=== PATIENT | female | born 2000 | race Caucasian/White ===

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

== ENCOUNTER 2022-07-13 07:15 | Emergency (ER) | payer BC, SELFPAY ==
[2022-07-13] VITALS (8 sets, daily range): BP systolic 109–174; BP diastolic 72–107; PULSE 76–115; RESP 16–18; TEMP 36.6–37.3; O2SAT 96–100; BMI 48.6
--- NOTE | 2022-07-13 07:31 | EKG12_ITS ---
Test Reason : CLERENCE Blood Pressure : / mmHG Vent. Rate : 109 BPM Atrial Rate : 109 BPM P-R Int : 190 ms QRS Dur : 080 ms QT Int : 326 ms P-R-T Axes : 045 038 011 degrees QTc Int : 439 ms Sinus tachycardia Otherwise normal ECG Confirmed by ALMA DELIA PATEL ([id number]), greeting card editor KRISH JOLLY ([id number]) on 07/16/2022 7:27:45 AM Referred By: Confirmed By:ALMA DELIA PATEL
[2022-07-13 08:06] LABS: Absolute Lymphocyte Count 2.43 X10^3/uL (0.83-4.51); Absolute Neutrophil Count 11.1 X10^3/uL (2.0-7.7); Basophil# 0.05 X10^3/uL; Basophil% 0.3 % (0-1); Eosinophil# 0.22 X10^3/uL; Eosinophils% 1.5 % (0-5); Hematocrit 44.4 % (37-47); Hemoglobin 14.2 g/dL (12.0-15.0); Lymphocyte # 2.43 X10^3/ul (0.83-4.51); Lymphocyte % 16.6 % (19-41); Mean Corpuscular Hgb 28.5 pg (27.0-32.0); Mean Corpuscular Volume 89.2 fL (81-99); Mean Platelet Vol. 9.3 fl (6.2-12.0); Monocyte% 5.5 % (0-10); NRBC Flagged by Analyzer 0 % (0-5); Neutrophil # 11.09 X10^3/uL (2.7-7.7); Neutrophil % 75.6 % (47-70); Platelet Count 364 K/mm3 (150-450); RBC Distribution Width CV 13.3 % (11.6-14.6); RBC Distribution Width SD 43.4 fl (35.1-43.9); Red Blood Count 4.98 M/mm3 (4.2-5.4); White Blood Count 14.7 K/mm3 (4.4-11.0)
--- NOTE | 2022-07-13 08:10 | EDS_ITS ---
HPI History of Present Illness Chief Complaint: Overdose Informant: patient Onset/Context/Timing Onset: Yesterday Context: Sudden Onset Timing: Continuous Quality: Depressed Location: Generalized Worsened by: Nothing Relieved by: Nothing Associated Symptoms Associated Symptoms: Positive for palpatations and suicidal ideation; Negative for vomiting*, diarrhea*, fever*, rash*, seizure, tremor, change in mental status or homicidal ideation Narrative Narrative: Patient presents with overdose of gabapentin and Lexapro that occurred this morning. Patient states that she started feeling depressed last night. Patient states it got worse today. Patient states she took 90 gabapentin tablets of 100 mg each and 6 of her Lexapro tablets that are 40 mg each. Patient took these approximately 1-1/2 hours prior to arrival. Patient states this was a suicide attempt. Patient feels like she has some palpitations and heart racing. Patient denies any nausea or vomiting. Patient denies any fevers or chills. Patient denies any seizures. [facility] Medical History Anxiety Home Medications Amphetam/Dextroamp 12/29/18 [History Last Taken Unknown] citalopram 40 mg tablet 30 mg PO DAILY 12/29/18 [History Last Taken Unknown] gabapentin 100 mg capsule 100 mg PO DAILY PRN Anxiety 12/29/18 [History Last Taken Unknown] Allergy/AdvReac Type Severity Reaction Status Date / Time No Known Allergies Allergy Verified 12/29/18 17:28 Surgical History no surgical history no surgical history Social History (Updated 07/13/22 @ 08:[address] Jamison Tineo DO) Smoking Status: Current every day smoker tobacco type: e-cigarettes alcohol intake: current substance use type: marijuana ROS ROS ED Constitutional Constitutional ED: Denies chills or fever(s) Eyes Eyes: Denies blurry vision or change in vision ENT ENT ED: Denies rhinorrhea or sore throat Cardiovascular Cardiovascular: Reports palpitations and racing heartbeat; Denies chest pain Respiratory/Chest Respiratory/Chest: Denies cough or dyspnea Gastrointestinal Gastrointestinal: Denies nausea or vomiting Genitourinary Genitourinary ED: Denies dysuria or hematuria Musculoskeletal Musculoskeletal: Denies back pain or neck pain Integumentary Denies abscess or rash Neurologic Neurologic: Reports headache(s); Denies weakness Psychiatric Psychiatric: Reports depression and suicidal thoughts Allergic/Immunologic Allergic/Immunologic ED: Denies mouth swelling or urticaria EXAM Physical Exam Const Vital Signs: 07/13/22 07:16 07/13/22 08:17 07/13/22 09:37 Temperature 97.8 F Temperature Source Temporal Pulse Rate 115 H 94 88 Respiratory Rate 18 16 16 Blood Pressure 174/94 H 164/107 H 109/81 H Blood Pressure Mean 120 126 90 Pulse Ox 97 98 97 Oxygen Delivery Method Room Air Room Air Room Air 07/13/22 11:17 07/13/22 13:08 07/13/22 16:00 Temperature Temperature Source Pulse Rate 89 88 90 Respiratory Rate 18 18 16 Blood Pressure 152/91 H 158/91 H 142/88 H Blood Pressure Mean 111 113 106 Pulse Ox 97 97 99 Oxygen Delivery Method Room Air Room Air Room Air Positive well nourished, well developed and obese General Appearance ED: well developed and NAD Nutritional Appearance: obese HEENT normocephalic and atraumatic Neck supple and no JVD Resp normal respiratory effort and clear to auscultation bilaterally Cardio Rate: tachycardic Rhythm: regular rhythm GI non-tender and non-distended Auscultation: normoactive bowel sounds Palpation: soft Extremity normal to inspection General Extremety ED: Negative for edema or tenderness General Extremity: Negative for edema Neuro oriented x3, CN's II-XII intact bilaterally and no sensory deficits noted Sensorium / Orientation: alert Motor Exam: strength 5/5 throughout Psych mental status grossly normal Activity / Motor Behavior: avoids eye contact Speech: minimal and soft Mood & Affect: depressed and flat affect Thought Content: suicidality Skin Rashes: no rashes MDM MDM MDM Narrative Medical decision making narrative: Differential diagnosis includes suicide attempt, overdose on gabapentin, ov erdose on Lexapro, coingestion, alcohol intoxication, and major depression. Basic medical screening labs will be obtained. CBC will be obtained to assess for anemia and leukocytosis. Comprehensive metabolic profile will be obtained to assess for electrolyte abnormality, renal function, and hepatic function. Serum hCG will be obtained to assess for status. Serum alcohol level will be obtained to assess for alcohol intoxication. Acetaminophen level and salicylate levels will be obtained to assess for coingestions. Urine tox screen will be obtained to assess for substance abuse. COVID-19 rapid antigen will be obtained to assess for COVID-19 infection. EKG will be obtained to assess for cardiac dysrhythmia and QT prolongation. Lab Data Attestation: I reviewed the patient's lab results. Lab results narrative: CBC was reviewed. There is a mild leukocytosis of 14.7. Comprehensive metabolic profile was reviewed. Potassium was slightly low at 3.3. Urine tox screen was reviewed and was positive for cannabinoids. Acetaminophen level was reviewed and was less than 2. Salicylate level was reviewed and was less than 1.7. Serum hCG was reviewed and was negative. Serum alcohol level was reviewed and was normal at 5. COVID-19 rapid antigen was reviewed and was negative. Labs: Laboratory Results - last 24 hr 07/13/22 07/13/22 07/13/22 07:35 07:50 07:50 WBC 14.7 H RBC 4.98 Hgb 14.2 Hct 44.4 MCV 89.2 MCH 28.5 MCHC 32.0 RDW Std Deviation 43.4 RDW Coeff of Fabiola 13.3 Plt Count 364 MPV 9.3 Immature Gran % (Auto) 0.500 Neut % (Auto) 75.6 H Lymph % (Auto) 16.6 L [place] % (Auto) 5.5 Eos % (Auto) 1.5 Baso % (Auto) 0.3 Absolute Neuts (auto) 11.1 H Absolute Lymphs (auto) 2.43 Nucleated RBC % 0 Sodium 137 Potassium 3.3 L Chloride 110 H Carbon Dioxide 20.0 L Anion Gap 7 BUN 9 Creatinine 1.14 H Estim Creat Clear Calc 73.08 Est GFR (MDRD) Af Amer 77 Est GFR (MDRD) Non-Af 64 BUN/Creatinine Ratio 7.9 L Glucose 114 H Calcium 9.1 Total Bilirubin 0.20 AST 13 L ALT 24 Alkaline Phosphatase 81 Total Protein 7.7 Albumin 3.5 Globulin 4.2 Albumin/Globulin Ratio 0.8 L Serum , Qual Salicylates Urine Opiates Screen NEGATIVE Urine Methadone Screen NEGATIVE Acetaminophen Ur Barbiturates Screen NEGATIVE Ur Phencyclidine Scrn NEGATIVE Ur Amphetamines Screen NEGATIVE MDMA (Ecstasy) Screen NEGATIVE U Benzodiazepines Scrn NEGATIVE Urine Cocaine Screen NEGATIVE U Cannabinoids Screen POSITIVE H Ur Drug Screen Comment Ethyl Alcohol 07/13/22 07/13/22 07:50 07:50 WBC RBC Hgb Hct MCV MCH MCHC RDW Std Deviation RDW Coeff of Fabiola Plt Count MPV Immature Gran % (Auto) Neut % (Auto) Lymph % (Auto) [place] % (Auto) Eos % (Auto) Baso % (Auto) Absolute Neuts (auto) Absolute Lymphs (auto) Nucleated RBC % Sodium Potassium Chloride Carbon Dioxide Anion Gap BUN Creatinine Estim Creat Clear Calc Est GFR (MDRD) Af Amer Est GFR (MDRD) Non-Af BUN/Creatinine Ratio Glucose Calcium Total Bilirubin AST ALT Alkaline Phosphatase Total Protein Albumin Globulin Albumin/Globulin Ratio Serum , Qual NEGATIVE Salicylates < 1.7 L Urine Opiates Screen Urine Methadone Screen Acetaminophen < 2.0 L Ur Barbiturates Screen Ur Phencyclidine Scrn Ur Amphetamines Screen MDMA (Ecstasy) Screen U Benzodiazepines Scrn Urine Cocaine Screen U Cannabinoids Screen Ur Drug Screen Comment Ethyl Alcohol 5.0 EKG Initial EKG: Attestation: I personally reviewed and interpreted this EKG as follows: Interpretation: No Acute Injury Pattern and Sinus Tachycardia (109) Comments: EKG was obtained. On my independent interpretation, it showed a sinus tachycardia with a rate of 109. NH interval, QRS interval, and QTc intervals were all normal. [place] was normal. There are no acute ST or T wave changes. Prior EKG tracings: available for review Prior: Unchanged (12/29/2018) Treatment and Re-Evaluation Narrative: Patient has no signs of hypersomnolence at this time. Case was discussed with poison control. They recommended observing the patient for 6 hours. Patient has been observed here in the emergency department for over 6 hours. Patient has had no further signs of respiratory depression or hypersomnolence. Patient is medically cleared for psychiatric placement. Case was discussed with crisis counselor. They will attempt to place the patient in a psychiatric facility. [place] slip will be filled out and placed on the chart. Patient understands and is agreeable with the plan. All questions were answered. Patient was accepted to [facility]. Patient will be transferred there. Patient is agreeable with the plan. All questions were answered. Discharge Plan Triage Chief Complaint: Overdose ED Provider: Jamison Tineo Dx/Rx/DC Orders Clinical Impression: Suicide attempt, Depression, Borderline personality disorder Prescriptions: No Action Amphetam/Dextroamp citalopram 40 MG tablet 30 mg PO DAILY gabapentin 100 capsule 100 mg PO DAILY PRN (Reason: Anxiety) Primary Care Provider: Jose Membreno Referrals: Jose Membreno DO [Primary Care Provider] - Disposition Disposition: Psychiatric Hospital or Unit Discharge Location: [facility]
[2022-07-13 08:27] LABS: Internal QC Validated? YES +Cl - CLEAR BKGD; Pregnancy, Serum, hCG Quali. NEGATIVE Negative
[2022-07-13 08:29] LABS: Amphetamine Urine VISTA NEGATIVE (<1000 ng/mL); Barbiturate Urine VISTA NEGATIVE (< 200 ng/mL); Benzodiazepine Urine VISTA NEGATIVE (< 200 ng/mL); Cocaine Urine VISTA NEGATIVE (< 300 ng/mL); Ecstacy Urine VISTA NEGATIVE (< 500 ng/mL); Methadone Urine VISTA NEGATIVE (< 300 ng/mL); PCP Urine VISTA NEGATIVE (< 25 ng/mL); THC Urine VISTA POSITIVE (< 50 ng/mL); Vista UDS pH Range 7
[2022-07-13 08:33] LABS: Acetaminophen (Tylenol) Level < 2.0 ug/mL (10.0-30.0); Salicylate < 1.7 mg/dL (2.8-20.0)
[2022-07-13 08:35] LABS: ALB/GLOB Ratio 0.8 RATIO (0.9-2.4); AST(SGOT) 13 U/L (15-37); Alanine Aminotransfer ALT/SGPT 24 U/L (13-56); Albumin, Serum 3.5 g/dL (3.2-5.0); Alkaline Phosphatase 81 U/L (45-117); Anion Gap 7 (5-15); BUN 9 mg/dL (7-18); BUN/Creat Ratio 7.9 RATIO (10-20); Calcium,Total 9.1 mg/dL (8.5-10.1); Chloride 110 mmol/L (98-107); Creatinine, Serum 1.14 mg/dL (0.55-1.02); EST Glomerular Filtration Rate 64 mL/min (>60); Est Glom Filt Rate - Afr Amer 77 mL/min (>60); Estimated Creatinine Clearance 73.08 ml/min; Globulin 4.2 g/dL (2.2-4.2); Glucose 114 mg/dL (74-106); Potassium 3.3 mmol/L (3.5-5.1); Protein, Total 7.7 g/dL (6.4-8.2); Sodium Level 137 mmol/L (136-145)
[2022-07-13] MEDS: 0.9% Normal Saline 1,000 ML 1000 ML IV (09:32)
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
--- NOTE | 2022-07-13 21:07 | ED.RN ---
KIP ETA PUSHED UNTIL 0/230
[2022-07-13] MEDS: Ibuprofen 600 MG Tablet PO (23:35)
== END 2022-07-13 23:42 ==
PROVIDERS: Emergency Provider Emergency Medicine; PCP Pediatrics; Visit Provider Emergency Medicine
DX: T42.6X2A Poisoning by other antiepileptic and sedative-hypnotic drugs, intentional self-harm, initial encounter (principal); T43.222A Poisoning by selective serotonin reuptake inhibitors, intentional self-harm, initial encounter; F60.3 Borderline personality disorder; R00.0 Tachycardia, unspecified; R00.2 Palpitations; F32.A Depression, unspecified; F17.290 Nicotine dependence, other tobacco product, uncomplicated; Z79.899 Other long term (current) drug therapy
CPT/HCPCS: 80053; 80307; 80329; 82077; 84703; 85025; 87426; 93005; 96360; 96361; 99285; J7030; G0480

== ENCOUNTER 2022-09-12 23:26 | Emergency (ER) | payer BC, SELFPAY ==
--- NOTE | 2022-09-12 00:08 | RAD_ITS ---
INDICATION: pain EXAMINATION/TECHNIQUE: X-RAY - RIGHT XR Ankle Min 3 Views COMPARISON: None. FINDINGS: SOFT TISSUES: Soft tissue swelling lateral ankle. No radiopaque foreign body detected. BONES/JOINTS: No acute fracture or subluxation. Normal alignment. Preservation of the joint space(s). Small plantar calcaneal enthesophyte. RAD/Ankle min 3 Views IMPRESSION: Right ankle soft tissue swelling with no acute osseous injury. Electronically Signed: Damien King MD at 0:41 EDT ,
[2022-09-12 23:27] VITALS: BP 134/67; PULSE 83; RESP 18; TEMP 36.9; O2SAT 100; BMI 44.9
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
[2022-09-12] MEDS: Morphine 4 MG/ML Syringe IV (23:45)
[2022-09-12] MEDS: Ondansetron 4 MG/2 ML Vial IV (23:46)
[2022-09-12 23:53] LABS: Absolute Lymphocyte Count 2.45 X10^3/uL (0.83-4.51); Absolute Neutrophil Count 13.2 X10^3/uL (2.0-7.7); Basophil# 0.05 X10^3/uL; Basophil% 0.3 % (0-1); Eosinophil# 0.08 X10^3/uL; Eosinophils% 0.5 % (0-5); Hematocrit 40.3 % (37-47); Lymphocyte # 2.45 X10^3/ul (0.83-4.51); Lymphocyte % 14.7 % (19-41); Mean Corp Hgb Conc 32.3 g/dL (32-36); Mean Corpuscular Hgb 28.9 pg (27.0-32.0); Mean Corpuscular Volume 89.6 fL (81-99); Mean Platelet Vol. 9.4 fl (6.2-12.0); Monocyte# 0.72 X10^3/uL; Monocyte% 4.3 % (0-10); NRBC Flagged by Analyzer 0 % (0-5); Neutrophil # 13.21 X10^3/uL (2.7-7.7); Neutrophil % 79.1 % (47-70); Platelet Count 315 K/mm3 (150-450); RBC Distribution Width CV 13.1 % (11.6-14.6); RBC Distribution Width SD 42.7 fl (35.1-43.9); White Blood Count 16.7 K/mm3 (4.4-11.0)
[2022-09-13 00:06] LABS: Anion Gap 5 (5-15); BUN 6 mg/dL (7-18); BUN/Creat Ratio 6.1 RATIO (10-20); Calcium,Total 8.7 mg/dL (8.5-10.1); Chloride 111 mmol/L (98-107); Creatinine, Serum 0.98 mg/dL (0.55-1.02); EST Glomerular Filtration Rate 76 mL/min (>60); Est Glom Filt Rate - Afr Amer 92 mL/min (>60); Glucose 102 mg/dL (74-106); Potassium 3.7 mmol/L (3.5-5.1); Sodium Level 140 mmol/L (136-145)
[2022-09-13 00:20] LABS: International Normalized Ratio 1.2; Prothrombin Time (Protime)PT. 14.7 SECONDS (11.7-14.9)
[2022-09-13] MEDS: Lidocaine 1% /Epi 1:100 (20ml) 20 ML Vial INFILT (00:25)
[2022-09-13] MEDS: Diphth,Pertuss(Acell),Tet Vac 0.5 ML Vial IM (02:06)
[2022-09-13] MEDS: Morphine 4 MG/ML Syringe IV (02:16)
[2022-09-13 02:29] VITALS: BP 158/72; PULSE 75; RESP 16; TEMP 36.7; O2SAT 100
[2022-09-13 02:58] VITALS: RESP 18
[2022-09-13 04:46] VITALS: BP 128/56; PULSE 83; RESP 16
== END 2022-09-13 05:48 | disposition short-term general hospital (02) ==
LOC: ED 23:50
PROVIDERS: Emergency Provider Student in an Organized Health Care Education/Training Program; PCP Pediatrics; Visit Provider Student in an Organized Health Care Education/Training Program
DX: S09.90XA Unspecified injury of head, initial encounter (principal); S16.1XXA Strain of muscle, fascia and tendon at neck level, initial encounter; S20.20XA Contusion of thorax, unspecified, initial encounter; M25.571 Pain in right ankle and joints of right foot; S71.112A Laceration without foreign body, left thigh, initial encounter; F12.90 Cannabis use, unspecified, uncomplicated; F17.290 Nicotine dependence, other tobacco product, uncomplicated; Z23 Encounter for immunization; Z79.899 Other long term (current) drug therapy; Y92.410 Unspecified street and highway as the place of occurrence of the external cause; V89.0XXA Person injured in unspecified motor-vehicle accident, nontraffic, initial encounter
CPT/HCPCS: 12002; 70450; 71260; 72125; 73610; 74177; 80048; 82077; 85025; 85610; 90715; 93005; 96374; 96375; 96376; 99285; Q9967; A4216; J2405

== ENCOUNTER 2024-05-04 08:07 | Emergency (ER) | payer OTHER, SELFPAY ==
[2024-05-04 08:08] VITALS: BP 144/85; PULSE 84; RESP 16; TEMP 36.7; O2SAT 98; BMI 42.3
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
[2024-05-04] MEDS: Acetaminophen 500 MG Tablet 1000 MG PO (08:31)
--- NOTE | 2024-05-04 09:00 | RAD_ITS ---
EXAM: XR Lumbosacral Spine, 2 or 3 Views CLINICAL INDICATION: TECHNIQUE: Frontal and lateral views of the lumbar spine and sacrum. COMPARISON: No relevant prior studies available. FINDINGS: VERTEBRAE: Unremarkable. No acute fracture. Normal alignment. SACRUM/COCCYX: Unremarkable as visualized. No acute fracture. DISC SPACES: No acute findings. No significant narrowing. SOFT TISSUES: Unremarkable. RAD/Lumbar Spine 2 or 3 Views IMPRESSION: No acute fracture. Reading Location: [facility]
--- NOTE | 2024-05-04 09:00 | RAD_ITS ---
EXAM: XR Sacrum and Coccyx, 2 or more Views CLINICAL INDICATION: TECHNIQUE: Frontal and lateral views of the sacrum and coccyx. COMPARISON: No relevant prior studies available. FINDINGS: SACRUM/COCCYX: Unremarkable as visualized. No acute fracture. VERTEBRAE: Visualized lumbar vertebrae are unremarkable. SOFT TISSUES: Unremarkable. RAD/Sacrum-Coccyx min 2 Views IMPRESSION: Normal sacrum and coccyx x-rays. Reading Location: [facility]
== END 2024-05-04 10:20 | disposition home or self-care (01) ==
LOC: ED 10:13
PROVIDERS: Emergency Provider Emergency Medicine; PCP Family Medicine; Visit Provider Emergency Medicine
DX: M54.50 Low back pain, unspecified (principal); V43.52XA Car driver injured in collision with other type car in traffic accident, initial encounter; F17.290 Nicotine dependence, other tobacco product, uncomplicated
CPT/HCPCS: 72100; 72220; 99282